=== PATIENT | female | born 1995 | race Caucasian/White ===

== ENCOUNTER 2016-11-09 00:15 | Emergency (ER) | payer OTHER ==
[~2016-11-09] VITALS: Ht 170.2 cm; Wt 100.0 kg
[2016-11-09 00:20] VITALS: BP_SYST 137; BP_DIAS 8; BP_DIAS 88; PULSE 95; RESP 25; O2SAT 97
--- NOTE | 2016-11-09 00:44 | ED.REPORT ---
HPI-Dental/Mouth Prob Date of Service November 09, 2016 ED Provider: Dr. Tenorio 21 y/o female with no pertinent hx presents to the ED complaining of left facial swelling, onset yesterday. The pt states the pain radiates to her neck and ear. She reports jaw pain when trying to open her mouth and dental pain when she tries to bite down. The pt denies fever and chills. The pt went to her doctor today for the same complaint and was prescribed amoxicillin, with little effect. Nursing Notes Stated Complaint: SWELLING L SIDE OF FACE/MOUTH Chief Complaint: Dental Nursing Notes Reviewed: Yes Allergies: Coded Allergies: No Known Allergies (Unverified , 11/09/16) General Time Seen by MD: 00:44 Chief Complaint Mouth pain Hx Obtained From: Patient Arrived By: Walk-in Onset Occurred: Yesterday Symptom Duration: Since onset Location: : Gum mandible left Quality: Painful Radiation: : Neck Severity: Current: Moderate Severity: Maximum: Moderate Recent Healthcare: Recent doctor visit Similar Sx Previous: No Past Medical History Past Medical History none reported Past Surgical History none reported Smoking History Unknown if Ever Smoker Social History Alcohol Use: "Social" Ambulatory Status Independent Review of Systems Reports jaw swelling and dental pain. Constitutional: Denies: Chills, Fever Complete sys rev & neg: except as marked. Musculoskeletal: Reports: Neck pain Physical Exam Initial Vital Signs Vital Signs (First) Date Time Temp Pulse Resp B/P Pulse Ox O2 Delivery O2 Flow Rate FiO2 11/09/16 00:20 36.6 95 25 137/88 97 Room Air Initial VS: Reviewed, Vital signs normal Head / Eyes: Atraumatic, Normocephalic Respiratory: Breath sounds normal, No respiratory distress Cardiovascular: Regular rate & rhythm, Heart sounds normal Abdomen / GI: Soft, Non-tender Extremities: Vascular intact, Neuro intact, No swelling, No tenderness Skin: Warm, Dry, No cyanosis Neurologic: Alert, Oriented, Nonfocal ENT: Atraumatic, Mucous membranes moist, No pooling of secretions Mouth: Negative: Angioedema present..., Drooling, Lip swelling present, Mass present, Pooling of secretions Dental / Gums: Positive: Tender to percussion Mild soft tissue over the angle of the mandible but nothing below the mandible. Angular mandible pain. Neck: Atraumatic, Full range of motion General/Constitutional: Awake, Alert, Cooperative No Zachery's angina Interpretation & Diagnostics Lab Results Interpretation Result Diagram: 11/09/16 0119 11/09/16 0119 Test 11/09/16 01:19 White Blood Count 7.1th/mm3 (3.8-10.1) Red Blood Count 4.73mil/mm3 (3.90-5.20) Hemoglobin 13.4g/dL (12.0-15.6) Hematocrit 38.5% (35.0-46.0) Mean Corpuscular Volume 81.4fL (81-100) Mean Corpuscular Hemoglobin 28.3pg (27.0-35.0) Mean Corpuscular Hemoglobin Concent 34.8% (32.0-37.0) Red Cell Distribution Width 13.0% (12.3-15.4) Platelet Count 318bil/L (150-400) Neutrophils (%) (Auto) 59.7% (40-74) Lymphocytes (%) (Auto) 28.6% (14-46) Monocytes (%) (Auto) 9.6% (4-12) Eosinophils (%) (Auto) 1.7% (0-5) Basophils (%) (Auto) 0.3% (0-3) Sodium Level 137mEq/L (134-144) Potassium Level 3.7mEq/L (3.5-5.2) Chloride Level 99mEq/L (97-108) Carbon Dioxide Level 23mmol/L (18-29) Blood Urea Nitrogen 7mg/dL (6-20) Creatinine 0.58mg/dL (0.57-1.00) Estimat Glomerular Filtration Rate 188mL/min (>59) Glucose Level 99mg/dL (60-99) Calcium Level 9.5mg/dL (8.5-10.1) Hold Tobias Top Tube Received (Received) Re-Eval/Medical Decision Med Decision/Clinical Course No signs of an abscess or deep space infection. CT scan not indicated. IV Unasyn and steroids were given. Oral pain medication and she looked and felt great. Much less swelling. I will place her on Augmentin as well as a course of Karnak for pain and recommend urgent dental follow-up. Source of Hx: Old records Re-Evaluation/Progress : Time of Eval: 01:30 Patient Status: Condition improved Re-Evaluation/Progress Note: Rechecked pt. Discussed lab results and diagnosis. Informed the pt of the plan to discharge. Pt understands and agrees with plan. F/U instructions and RTER warning given. All questions addressed. Counseled Regarding: Diagnosis, Lab results, Need for follow-up, When/why to return to ED Discharge & Departure Primary Impression: Dental infection Disposition: Home Discharge Condition All VS Reviewed: Yes Condition: Stable Patient Instructions: Dental Abscess (ED), Dental Caries (ED) Additional Instructions: Take Augmentin twice daily for 7 days. Take 1-2 Karnak every 6 hours as needed for severe pain. Do not drive or drink alcohol or consume acetaminophen while taking the Karnak. Return if you have any worsening symptoms or if he developed any facial swelling. Return if you have difficulty opening your mouth or if the floor of your mouth becomes firm or painful. I recommended he see a dentist as soon as possible. Call today. Read the aftercare instructions given Referrals: [facility] Scribe Attestation Portions of this note were transcribed by Arianna Browne. I, , personally performed the history, physical exam and medical decision-making;I reviewed and confirmed the accuracy of the information in the transcribed note. Signed by Andree Guevara. 11/09/16 01:58. copies to: [facility] Chidi Tenorio DO November 09, 2016 00:44 Arianna Browne November 09, 2016 00:56
[2016-11-09] MEDS ORDERED: Dexamethasone 10 mg/mL Inj IVPUSH ONE (00:55)
[2016-11-09] MEDS ORDERED: Ampicillin-Sulbactam Inj 3,000 MG in 0.9% Sodium Chloride 100 ML IV ONE (00:55)
[2016-11-09] MEDS ORDERED: HYDROcodone-APAP 5-325 mg Tablet PO ONE (00:55)
[2016-11-09] MEDS ORDERED: _HYDROcodone/APAP 5-325 mg Tablet PO PRN (00:55)
[2016-11-09 01:30] LABS: BASOPHILS % (AUTO) 0.3 % (0-3); EOSINOPHILS % (AUTO) 1.7 % (0-5); MONOCYTES % (AUTO) 9.6 % (4-12); Mean Corpuscular Hemoglobin 28.3 pg (27.0-35.0); Mean Corpuscular Volume 81.4 fL (81-100); NEUTROPHILS % (AUTO) 59.7 % (40-74); Platelet Count 318 bil/L (150-400)
[2016-11-09 02:17] VITALS: BP 130/82; PULSE 90; RESP 18; O2SAT 98
[2016-11-09] MEDS ORDERED: Sodium Chloride LOK Flush 10 mL Syringe IVFLUSH SCH (08:30)
== END 2016-11-09 02:18 | disposition home or self-care (01) ==
LOC: SED 00:15
DX: K04.7 Periapical abscess without sinus (principal)
CPT/HCPCS: 36415; 80048; 85025; 96365; 96375; 99284; J0295; J1100